=== PATIENT | female | born 1970 | race Caucasian/White ===

== ENCOUNTER → 2018-02-20 | Outpatient (CLI) | payer MEDICARE, MEDICAID ==
[~2018-02-20] MED LIST: ATIVAN 1MG T1 MG/TAB PO; CLARITIN D TAB1 TAB PO; CYMBALTA 60MG60 MG PO; DESYREL 50MG50 MG PO; FLONASE NASAL S16 GM NS; LYRICA 100MG C100 M1 PO; NORCO 325 MG-51 TAB PO; PERCOCET 325 MG1 TA2 PO; PRILOSEC 20MG20 MG PO
== END ==
LOC: MHCPAIN 08:20
DX: G89.29 Other chronic pain (principal); M47.817 Spondylosis without myelopathy or radiculopathy, lumbosacral region; M53.3 Sacrococcygeal disorders, not elsewhere classified; M54.81 Occipital neuralgia; R51 Headache
CPT/HCPCS: G0463

== ENCOUNTER → 2018-03-22 | Outpatient (CLI) | payer MEDICARE, MEDICAID | LOC: MHCPAIN 13:49 | DX: G89.29 Other chronic pain (principal); M47.817 Spondylosis without myelopathy or radiculopathy, lumbosacral region; M53.3 Sacrococcygeal disorders, not elsewhere classified; M54.81 Occipital neuralgia | CPT/HCPCS: G0463 ==

== ENCOUNTER → 2018-03-27 | Outpatient (CLI) | payer MEDICARE, MEDICAID | LOC: MHCPAIN 10:43 | DX: M54.81 Occipital neuralgia (principal) | CPT/HCPCS: J1100 ==

== ENCOUNTER → 2018-06-27 | Outpatient (CLI) | payer MEDICARE, MEDICAID | LOC: MHCPAIN 12:56 | DX: G89.29 Other chronic pain (principal); M47.817 Spondylosis without myelopathy or radiculopathy, lumbosacral region; M53.3 Sacrococcygeal disorders, not elsewhere classified; M54.81 Occipital neuralgia | CPT/HCPCS: G0463 ==

== ENCOUNTER → 2018-09-26 | Outpatient (REF) ==
[2018-09-26 15:34] LABS: IRON,SERUM 187 ug/dL (35-150)
[2018-09-26 15:43] LABS: TOTAL IRON BINDING CAPACITY 355 ug/dL (265-497)
[2018-09-26 16:12] LABS: FERRITIN 46 ng/mL (6-137)
== END ==
LOC: ZLAB.WCH 15:13
DX: Z01.89 Encounter for other specified special examinations (principal)

== ENCOUNTER → 2018-09-27 | Outpatient (CLI) | payer MEDICARE, MEDICAID | LOC: MHCPAIN 13:33 | DX: G89.29 Other chronic pain (principal); M47.817 Spondylosis without myelopathy or radiculopathy, lumbosacral region; M53.3 Sacrococcygeal disorders, not elsewhere classified; M54.81 Occipital neuralgia; M79.2 Neuralgia and neuritis, unspecified | CPT/HCPCS: G0463 ==

== ENCOUNTER → 2018-10-11 | Outpatient (CLI) | payer MEDICARE, MEDICAID | LOC: MHCPAIN 13:46 | DX: M54.81 Occipital neuralgia (principal) | CPT/HCPCS: J1100 ==

== ENCOUNTER → 2019-01-02 | Outpatient (CLI) | payer MEDICARE | LOC: MHCPAIN 10:06 | DX: G89.29 Other chronic pain (principal); M47.817 Spondylosis without myelopathy or radiculopathy, lumbosacral region; M53.3 Sacrococcygeal disorders, not elsewhere classified | CPT/HCPCS: G0463 ==

== ENCOUNTER → 2019-03-27 | Outpatient (CLI) | payer MEDICARE | LOC: MHCPAIN 13:11 | DX: G89.29 Other chronic pain (principal); M47.817 Spondylosis without myelopathy or radiculopathy, lumbosacral region; M54.16 Radiculopathy, lumbar region; M53.3 Sacrococcygeal disorders, not elsewhere classified | CPT/HCPCS: G0463 ==

== ENCOUNTER → 2019-06-19 | Outpatient (CLI) | payer MEDICARE | LOC: MHCPAIN 12:52 | DX: G89.29 Other chronic pain (principal); M54.81 Occipital neuralgia; R51 Headache | CPT/HCPCS: G0463 ==

== ENCOUNTER 2019-08-10 13:45 | Outpatient (RCR) | payer MEDICARE, MEDICAID | END 2019-10-16 | disposition home or self-care (01) | LOC: WSC | DX: M47.817 Spondylosis without myelopathy or radiculopathy, lumbosacral region (principal); M54.16 Radiculopathy, lumbar region ==

== ENCOUNTER → 2019-10-03 | Outpatient (CLI) | payer MEDICARE, MEDICAID | LOC: MHCPAIN 13:09 | DX: M54.2 Cervicalgia (principal); R51 Headache; M54.81 Occipital neuralgia | CPT/HCPCS: G0463 ==

== ENCOUNTER → 2020-02-20 | Outpatient (CLI) | payer MEDICARE, MEDICAID | LOC: MHCPAIN 14:55 | DX: M47.817 Spondylosis without myelopathy or radiculopathy, lumbosacral region (principal); M54.5 Low back pain; M53.3 Sacrococcygeal disorders, not elsewhere classified; G89.29 Other chronic pain; M54.81 Occipital neuralgia; R51 Headache | CPT/HCPCS: G0463 ==

== ENCOUNTER → 2020-05-20 | Outpatient (CLI) | payer MEDICARE, MEDICAID | LOC: MHCPAIN 08:16 | DX: M47.817 Spondylosis without myelopathy or radiculopathy, lumbosacral region (principal); M54.5 Low back pain; M54.2 Cervicalgia; M54.81 Occipital neuralgia | CPT/HCPCS: G0463 ==

== ENCOUNTER → 2020-08-11 | Outpatient (CLI) | payer MEDICARE, MEDICAID | LOC: MHCPAIN 09:31 | DX: M47.817 Spondylosis without myelopathy or radiculopathy, lumbosacral region (principal); M54.2 Cervicalgia; R51.9 Headache, unspecified; M54.5 Low back pain; G89.29 Other chronic pain | CPT/HCPCS: G0463 ==

== ENCOUNTER → 2020-11-18 | Outpatient (CLI) | payer MEDICARE, MEDICAID | LOC: MHCPAIN 11:12 | DX: M47.816 Spondylosis without myelopathy or radiculopathy, lumbar region (principal); M54.5 Low back pain; M54.2 Cervicalgia; R51.9 Headache, unspecified | CPT/HCPCS: G0463 ==

== ENCOUNTER → 2021-02-17 | Outpatient (CLI) | payer MEDICARE, MEDICAID | LOC: MHCPAIN 08:42 | DX: M54.2 Cervicalgia (principal); M54.81 Occipital neuralgia; M79.2 Neuralgia and neuritis, unspecified | CPT/HCPCS: G0463 ==

== ENCOUNTER → 2021-05-19 | Outpatient (CLI) | payer MEDICARE, MEDICAID | LOC: MHCPAIN 08:41 | DX: M47.896 Other spondylosis, lumbar region (principal); M53.3 Sacrococcygeal disorders, not elsewhere classified; M54.5 Low back pain | CPT/HCPCS: G0463 ==

== ENCOUNTER → 2021-08-04 | Outpatient (CLI) | payer MEDICARE, MEDICAID | LOC: MHCPAIN 10:42 | DX: M53.3 Sacrococcygeal disorders, not elsewhere classified (principal); M79.18 Myalgia, other site | CPT/HCPCS: G0463 ==

== ENCOUNTER → 2021-08-13 | Outpatient (CLI) | payer MEDICARE, MEDICAID | LOC: MHCPAIN 10:56 | DX: M47.817 Spondylosis without myelopathy or radiculopathy, lumbosacral region (principal); M53.3 Sacrococcygeal disorders, not elsewhere classified; M54.50 Low back pain, unspecified | CPT/HCPCS: G0260; J1040; Q9967 ==

== ENCOUNTER → 2021-10-27 | Outpatient (CLI) | payer MEDICARE, MEDICAID | LOC: MHCPAIN 09:57 | DX: M53.3 Sacrococcygeal disorders, not elsewhere classified (principal); M47.817 Spondylosis without myelopathy or radiculopathy, lumbosacral region; M79.2 Neuralgia and neuritis, unspecified | CPT/HCPCS: G0463 ==

== ENCOUNTER → 2021-11-12 | Outpatient (CLI) | payer MEDICARE, MEDICAID | LOC: MHCPAIN 10:19 | DX: M53.3 Sacrococcygeal disorders, not elsewhere classified (principal); M47.817 Spondylosis without myelopathy or radiculopathy, lumbosacral region | CPT/HCPCS: G0260; J1040; Q9967 ==

== ENCOUNTER → 2022-02-02 | Outpatient (CLI) | payer MEDICARE, MEDICAID | LOC: MHCPAIN 10:32 | DX: M54.2 Cervicalgia (principal); M79.2 Neuralgia and neuritis, unspecified; M53.3 Sacrococcygeal disorders, not elsewhere classified; G44.89 Other headache syndrome | CPT/HCPCS: G0463 ==

== ENCOUNTER → 2022-05-25 | Outpatient (CLI) | payer MEDICARE, MEDICAID | LOC: MHCPAIN 13:51 | DX: M54.81 Occipital neuralgia (principal); R51.9 Headache, unspecified; M53.3 Sacrococcygeal disorders, not elsewhere classified; M47.896 Other spondylosis, lumbar region | CPT/HCPCS: G0463; J1040 ==

== ENCOUNTER → 2023-09-14 | Outpatient (CLI) | payer MEDICARE, MEDICAID ==
[~2023-09-14] MED LIST changes: +AMOXICILLIN 8751 TAB PO; +CLEOCIN HCL300 MG PO; +LINZESS290CAP PO; +LOMAIRA8 MG; +MYRBETR50MG PO; +OZEMPIC0.25 MG/0. SQ; +PROTONIX 40MG T40 MG PO; +REGLAN 10MG10 MG/TAB PO; +TOPAMAX 25MG25 M1 PO; +TORADOL 10MG TA10 MG PO; +ZOFRAN ODT4 MG PO
== END ==
LOC: MHCPAIN 09:52
DX: M79.7 Fibromyalgia (principal); M54.50 Low back pain, unspecified; M54.2 Cervicalgia; G44.86 Cervicogenic headache
CPT/HCPCS: G0463

== ENCOUNTER 2023-11-11 22:05 | Emergency (ER) | payer MEDICARE, MEDICAID ==
[~2023-11-11] VITALS: Ht 167.6 cm; Wt 63.6 kg
[2023-11-11 22:06] VITALS: TEMP 98.3
[2023-11-12] MEDS ORDERED: Ketorolac 60 MG/2 ML VIAL IM ONE (00:15)
[2023-11-12] MEDS ORDERED: Acetaminophen 325 MG TAB PO ONE (00:15)
[2023-11-12 03:22] VITALS: BP 173/98; PULSE 70
== END 2023-11-12 03:22 | disposition home or self-care (01) ==
LOC: COL.ER 22:05
DX: S00.03XA Contusion of scalp, initial encounter (principal); S00.33XA Contusion of nose, initial encounter; S10.93XA Contusion of unspecified part of neck, initial encounter; S20.212A Contusion of left front wall of thorax, initial encounter; S00.81XA Abrasion of other part of head, initial encounter; Y04.0XXA Assault by unarmed brawl or fight, initial encounter; Y07.44 Child, perpetrator of maltreatment and neglect
CPT/HCPCS: J1885

== ENCOUNTER → 2023-12-13 | Outpatient (CLI) | payer MEDICARE, MEDICAID | LOC: MHCPAIN 10:15 | DX: M47.896 Other spondylosis, lumbar region (principal); M54.81 Occipital neuralgia | CPT/HCPCS: G0463 ==

== ENCOUNTER → 2024-03-06 | Outpatient (CLI) | payer MEDICARE, MEDICAID | LOC: MHCPAIN 09:40 | DX: M54.81 Occipital neuralgia (principal); M54.2 Cervicalgia; G44.86 Cervicogenic headache | CPT/HCPCS: G0463 ==

== ENCOUNTER → 2024-04-24 | Outpatient (CLI) | payer MEDICARE, MEDICAID | LOC: MHCPAIN 11:18 | DX: M79.7 Fibromyalgia (principal); M54.2 Cervicalgia; M54.50 Low back pain, unspecified; G44.86 Cervicogenic headache | CPT/HCPCS: G0463 ==

== ENCOUNTER → 2024-05-30 | Outpatient (CLI) | payer MEDICARE, MEDICAID | LOC: MHCPAIN 13:22 | DX: M54.12 Radiculopathy, cervical region (principal); M54.81 Occipital neuralgia; M47.896 Other spondylosis, lumbar region | CPT/HCPCS: G0463 ==